=== PATIENT | male | born 1965 | race Caucasian/White ===

== ENCOUNTER 2025-04-09 13:51 | Inpatient (IN) | payer MEDICAID ==
[~2025-04-09] VITALS: Ht 167.6 cm; Wt 81.6 kg
[~2025-04-09 13:51] MED LIST: IBUP-2028 MT; TOPUD MT
[2025-04-09 14:06] VITALS: O2SAT 100
[2025-04-09 15:08] LABS: CLARITY URINE CLOUDY (CLEAR); COLOR URINE ORANGE (YELLOW); GLUCOSE URINE NEGATIVE (NEGATIVE); KETONES URINE NEGATIVE (NEGATIVE); LEUKOCYTE ESTERASE URINE 1+ (NEGATIVE); NITRITE URINE POSITIVE (NEGATIVE); OCCULT BLOOD URINE NEGATIVE (NEGATIVE); PH URINE 5.0 (4.5-8.0); PROTEIN URINE TRACE (NEGATIVE); SPECIFIC GRAVITY URINE 1.020 (1.005-1.030); UROBILINOGEN URINE 1.0 E.U./dL (0.2-1.0)
[2025-04-09 15:22] LABS: HEMATOCRIT. 22.1 % (42.0-52.0); HEMOGLOBIN. 7.2 g/dL (14.0-18.0); MEAN PLATELET VOLUME 8.4 fl (7.4-10.4); PLATELET 98 x1000/uL (130-400); RED BLOOD CELL COUNT 2.00 mill/uL (4.7-6.1); RED CELL DISTRIBUTION WIDTH 18.0 % (11.6-14.6)
[2025-04-09 15:24] LABS: SQUAMOUS EPITHELIAL CELL URINE FEW /lpf (RARE/1+)
[2025-04-09 15:25] LABS: WBC URINE 0-2 /hpf (0-2)
[2025-04-09 15:26] LABS: BACTERIA URINE 2+; RBC URINE 0-2 /hpf (0-2)
[2025-04-09 15:29] LABS: HYALINE CASTS URINE TNTC /lpf
[2025-04-09 15:32] LABS: CREATININE 1.1 mg/dL (0.6-1.3)
[2025-04-09 15:32] LABS: *AMPHETAMINES SCREEN URINE NEGATIVE (NEGATIVE); *BARBITURATES SCREEN URINE NEGATIVE (NEGATIVE); *BENZODIAZEPINES SCREEN URINE NEGATIVE (NEGATIVE); *COCAINE SCREEN URINE NEGATIVE (NEGATIVE); METHADONE URINE SCREEN NEGATIVE (NEGATIVE); OPIATES URINE SCREEN NEGATIVE (NEGATIVE); PHENCYCLIDINE URINE SCREEN NEGATIVE (NEGATIVE)
[2025-04-09 15:33] LABS: ETHANOL BLOOD < 10 mg/dL (<10); UREA NITROGEN BLOOD 43 mg/dL (9-23)
[2025-04-09 15:33] LABS: CANNABINOID URINE SCREEN NEGATIVE (NEGATIVE); ECSTASY MDMA SCREEN URINE NEGATIVE (NEGATIVE)
[2025-04-09 15:34] LABS: ASPARTATE AMINOTRANSFERASE 39 IU/L (<34); BILIRUBIN DIRECT 2.4 mg/dL (<=3.0)
[2025-04-09 15:35] LABS: BILIRUBIN TOTAL 7.8 mg/dL (0.1-1.0); PROTEIN TOTAL 6.1 g/dL (6.0-8.3)
[2025-04-09 15:36] LABS: TROPONIN I HIGH SENSITIVITY 59 ng/L (3.0-53)
[2025-04-09 15:40] LABS: INR 1.7
[2025-04-09] MEDS: PIPERACILLIN/TAZO 3.375G/50ML 50 ML IV STA (16:23)
[2025-04-09 17:32] LABS: BAND% 9.0 % (1.0-6.0); EOSINOPHILS % MANUAL 2.0 % (0.0-5.0); LYMPHOCYTES % MANUAL 5.0 % (20.0-50.0); MONOCYTES % MANUAL 4.0 % (2.0-8.0); NEUTROPHILS % MANUAL 80.0 % (45.0-75.0); PLATELET ESTIMATE DECREASED
[2025-04-09] MEDS: SODIUM CHLORIDE 0.9% 1,000 ML IV ONE (17:37)
[2025-04-09 18:43] VITALS: BP 114/51; PULSE 81; RESP 20; TEMP 37.1; O2SAT 100
[2025-04-09 20:00] VITALS: BP 105/50; PULSE 70; RESP 17; TEMP 37.1; O2SAT 100
[2025-04-09 21:15] VITALS: BP 105/50; PULSE 74; RESP 18; TEMP 37.0852
[2025-04-09] MEDS ORDERED: ACETAMINOPHEN 325MG TABLET PO PRN (22:30)
[2025-04-09] MEDS ORDERED: HYDROCODONE/ACETAMINOPHEN 5/325MG TABLET PO PRN (22:30)
[2025-04-09] MEDS ORDERED: ONDANSETRON HCL 4MG/2ML INJ IV PRN (22:30)
[2025-04-09 23:21] LABS: HEPATITIS C AB NON REACTIVE (Neg) (Negative)
[2025-04-10] VITALS (15 sets, daily range): BP systolic 87–125; BP diastolic 51–71; PULSE 68–88; RESP 16–23; TEMP 36.4–37.1; O2SAT 98–100
[2025-04-10] MEDS ORDERED: IPRATROPIUM/ALBUTEROL 0.5-3(2.5)MG/3ML NEB HHN PRN (02:30)
[2025-04-10] MEDS: PIPERACILLIN/TAZO 3.375G/50ML 50 ML IV SCH (03:58)
[2025-04-10] MEDS: MIDODRINE HCL 5MG TABLET PO SCH (06:28)
[2025-04-10 06:40] LABS: PLATELET 67 x1000/uL (130-400); RED BLOOD CELL COUNT 1.46 mill/uL (4.7-6.1); RED CELL DISTRIBUTION WIDTH 17.9 % (11.6-14.6)
[2025-04-10 07:08] LABS: CREATININE 1.2 mg/dL (0.6-1.3); UREA NITROGEN BLOOD 52 mg/dL (9-23)
[2025-04-10 07:10] LABS: ASPARTATE AMINOTRANSFERASE 29 IU/L (<34); BILIRUBIN TOTAL 6.3 mg/dL (0.1-1.0); PROTEIN TOTAL 5.0 g/dL (6.0-8.3)
[2025-04-10] MEDS: PANTOPRAZOLE 40MG DR TABLET PO SCH (08:16)
[2025-04-10] MEDS: CEFTRIAXONE 1GM/50ML 50 ML IV SCH (11:38)
[2025-04-10] MEDS: ALBUMIN HUMAN 25GM/100ML (25%) IV NR (13:00)
[2025-04-10] MEDS: PHYTONADIONE 10 MG in DEXTROSE 5% WATER 49 ML IV NR (16:30)
[2025-04-10] MEDS: OCTREOTIDE 1,000 MCG in SODIUM CHLORIDE 0.9% 98 ML IV SCH (17:47)
[2025-04-10] MEDS: PANTOPRAZOLE SODIUM 40 MG/VIAL IV SCH (23:09)
[2025-04-11] VITALS (18 sets, daily range): BP systolic 95–143; BP diastolic 46–70; PULSE 49–76; RESP 12–20; TEMP 36.3–37.00296; O2SAT 98–100
[2025-04-11 01:59] LABS: INR 1.7
[2025-04-11 03:22] LABS: MEAN PLATELET VOLUME 8.3 fl (7.4-10.4); PLATELET 74 x1000/uL (130-400); RED BLOOD CELL COUNT 1.89 mill/uL (4.7-6.1); RED CELL DISTRIBUTION WIDTH 23.4 % (11.6-14.6)
[2025-04-11 03:26] LABS: HEMOGLOBIN. 6.4 g/dL (14.0-18.0)
[2025-04-11 03:27] LABS: HEMATOCRIT. 19.3 % (42.0-52.0)
[2025-04-11 03:38] LABS: CREATININE 0.9 mg/dL (0.6-1.3); UREA NITROGEN BLOOD 43 mg/dL (9-23)
[2025-04-11 03:39] LABS: INR 1.7
[2025-04-11 03:41] LABS: PHOSPHORUS 3.1 mg/dL (2.5-4.9)
[2025-04-11 03:52] LABS: BILIRUBIN TOTAL 4.7 mg/dL (0.1-1.0)
[2025-04-11] MEDS ORDERED: NALOXONE HCL 0.4MG/ML VIAL IV PRN (08:00)
[2025-04-11] MEDS ORDERED: ONDANSETRON HCL 4MG/2ML INJ IV PRN (14:00)
[2025-04-11] MEDS ORDERED: FENTANYL CITRATE/PF 50MCG/ML 2ML VIAL IV PRN (14:00)
[2025-04-11] MEDS ORDERED: MIDAZOLAM HCL 2 MG/2 ML VIAL ONE (14:12)
[2025-04-11] MEDS ORDERED: PROPOFOL 200MG/20ML VIAL IV ONE (14:13)
[2025-04-11] MEDS ORDERED: EPHEDRINE SULFATE 50MG/ML VIAL ONE (14:15)
[2025-04-11] MEDS ORDERED: SIMETHICONE 40 MG/0.6 ML 15ML ONE (14:15)
[2025-04-11] MEDS ORDERED: SUCR1TAB MT (16:11)
[2025-04-11] MEDS ORDERED: PROT40 MT ×2 (16:11→16:14)
[2025-04-11] MEDS ORDERED: LEVO-65 MT (16:11)
[2025-04-11] MEDS: SUCRALFATE 1G TABLET PO SCH (17:11)
[2025-04-12] VITALS: BP 123/57; PULSE 52; RESP 16; TEMP 36.6; O2SAT 100
[2025-04-12 04:00] VITALS: BP 129/59; PULSE 50; RESP 18; TEMP 37; O2SAT 98
[2025-04-12 06:54] LABS: BASOPHILS % 0.7 % (0.0-2.0); EOSINOPHILS % 3.8 % (0.0-5.0); HEMATOCRIT. 23.9 % (42.0-52.0); HEMOGLOBIN. 8.0 g/dL (14.0-18.0); LYMPHOCYTES % 34.9 % (20.0-50.0); MEAN PLATELET VOLUME 8.1 fl (7.4-10.4); MONOCYTES % 10.3 % (2.0-8.0); NEUTROPHILS % 50.3 % (40.0-76.0); PLATELET 74 x1000/uL (130-400); RED BLOOD CELL COUNT 2.42 mill/uL (4.7-6.1); RED CELL DISTRIBUTION WIDTH 22.2 % (11.6-14.6)
[2025-04-12 07:06] LABS: CREATININE 0.8 mg/dL (0.6-1.3); UREA NITROGEN BLOOD 26 mg/dL (9-23)
[2025-04-12 07:09] LABS: BILIRUBIN TOTAL 5.9 mg/dL (0.1-1.0)
[2025-04-12 08:00] VITALS: BP 122/53; PULSE 51; RESP 18; TEMP 36.8; O2SAT 94
[2025-04-12 12:00] VITALS: BP 134/61; PULSE 53; RESP 18; TEMP 36.6; O2SAT 95
[2025-04-12] MEDS ORDERED: SPIR25TA6 MT (15:43)
[2025-04-12] MEDS ORDERED: FURO-151 MT (15:43)
[2025-04-12 16:00] VITALS: BP 152/65; PULSE 57; RESP 19; TEMP 36.7; O2SAT 99
[2025-04-12] MEDS: FUROSEMIDE 40MG TABLET PO SCH (16:36)
[2025-04-12 17:18] VITALS: BP 141/65; PULSE 57; RESP 17; TEMP 98
== END 2025-04-12 18:25 | disposition home or self-care (01) | DRG 720 ==
LOC: ER 13:51 → 3WST 16:49 → EDBEDREQ 17:12 → EDBEDREQTM 17:12 → ENRESERV 17:16
PROVIDERS: ADMIT Internal Medicine; ATTEND Internal Medicine
PROC: 30233N1 Transfusion of Nonautologous Red Blood Cells into Peripheral Vein, Percutaneous Approach (ICD-10-PCS; 2025-04-10)
PROC: 0DB78ZX Excision of Stomach, Pylorus, Via Natural or Artificial Opening Endoscopic, Diagnostic (ICD-10-PCS; principal; 2025-04-11)
PROC: 30233K1 Transfusion of Nonautologous Frozen Plasma into Peripheral Vein, Percutaneous Approach (ICD-10-PCS; 2025-04-11)
DX: A41.9 Sepsis, unspecified organism (principal); E43 Unspecified severe protein-calorie malnutrition; K22.11 Ulcer of esophagus with bleeding; D68.9 Coagulation defect, unspecified; K70.31 Alcoholic cirrhosis of liver with ascites; K26.4 Chronic or unspecified duodenal ulcer with hemorrhage; K76.6 Portal hypertension; D53.9 Nutritional anemia, unspecified; N39.0 Urinary tract infection, site not specified; K31.89 Other diseases of stomach and duodenum; Z60.3 Acculturation difficulty; Z68.29 Body mass index [BMI] 29.0-29.9, adult
CPT/HCPCS: 36415; 71045; 74176; 76705; 80048; 80053; 80076; 80305; 80320; 81003; 82105; 82140; 82247; 82270; 83605; 83735; 83880; 84100; 84145; 84484; 85014; 85018; 85025; 85027; 85049; 86705; 86850; 86900; 86920; 86927; 87340; 88305; 88312; 88313; 93005; 93970; 99291; A4606; J0696; J2250; J2354; J2470; J2543; J2704; J3430; J3490; J7030; J7050; J7060; P9016; P9017; P9047; G0480